=== PATIENT | male | born 1975 | race Caucasian/White ===

== ENCOUNTER 2025-08-20 17:33 | Emergency (ER) | payer BC ==
[~2025-08-20] VITALS: Ht 177.8 cm; Wt 79.0 kg
[2025-08-20 17:42] VITALS: O2SAT 100
[2025-08-20] MEDS: ONDANSETRON HCL 4MG/2ML INJ IV ONE (17:50)
[2025-08-20 17:57] LABS: BASOPHILS % 0.3 % (0.0-2.0); EOSINOPHILS % 0.1 % (0.0-5.0); HEMATOCRIT. 42.3 % (42.0-52.0); HEMOGLOBIN. 14.4 g/dL (14.0-18.0); LYMPHOCYTES % 9.1 % (20.0-50.0); MEAN PLATELET VOLUME 8.4 fl (7.4-10.4); MONOCYTES % 3.9 % (2.0-8.0); NEUTROPHILS % 86.6 % (40.0-76.0); PLATELET 195 x1000/uL (130-400); RED BLOOD CELL COUNT 5.14 mill/uL (4.7-6.1); RED CELL DISTRIBUTION WIDTH 14.9 % (11.6-14.6)
[2025-08-20 18:08] LABS: INR 1.1
[2025-08-20 18:10] LABS: CREATININE 0.8 mg/dL (0.6-1.3); UREA NITROGEN BLOOD 11 mg/dL (9-23)
[2025-08-20 18:11] LABS: TROPONIN I HIGH SENSITIVITY 4 ng/L (3.0-53)
[2025-08-20 18:12] LABS: ASPARTATE AMINOTRANSFERASE 24 IU/L (<34); BILIRUBIN DIRECT 0.3 mg/dL (<=3.0); BILIRUBIN TOTAL 0.8 mg/dL (0.1-1.0); PROTEIN TOTAL 6.7 g/dL (6.0-8.3)
[2025-08-20] MEDS ORDERED: POTASSIUM CHLORIDE 20MEQ/PACKET PO ONE (18:30)
[2025-08-20 19:49] LABS: CLARITY URINE CLEAR (CLEAR); COLOR URINE YELLOW (YELLOW); GLUCOSE URINE NEGATIVE (NEGATIVE); KETONES URINE NEGATIVE (NEGATIVE); LEUKOCYTE ESTERASE URINE NEGATIVE (NEGATIVE); NITRITE URINE NEGATIVE (NEGATIVE); OCCULT BLOOD URINE TRACE (NEGATIVE); PH URINE 7.5 (4.5-8.0); PROTEIN URINE NEGATIVE (NEGATIVE); SPECIFIC GRAVITY URINE 1.022 (1.005-1.030); UROBILINOGEN URINE 0.2 E.U./dL (0.2-1.0)
[2025-08-20 19:57] LABS: *AMPHETAMINES SCREEN URINE NEGATIVE (NEGATIVE); *BARBITURATES SCREEN URINE NEGATIVE (NEGATIVE); *BENZODIAZEPINES SCREEN URINE NEGATIVE (NEGATIVE); *COCAINE SCREEN URINE NEGATIVE (NEGATIVE); CANNABINOID URINE SCREEN NEGATIVE (NEGATIVE); ECSTASY MDMA SCREEN URINE NEGATIVE (NEGATIVE); METHADONE URINE SCREEN NEGATIVE (NEGATIVE); OPIATES URINE SCREEN NEGATIVE (NEGATIVE); PHENCYCLIDINE URINE SCREEN NEGATIVE (NEGATIVE)
[2025-08-20] MEDS: POTASSIUM CHLORIDE 20MEQ/PACKET PO NR (20:18)
[2025-08-20 20:20] LABS: BACTERIA URINE NONE SEEN; SQUAMOUS EPITHELIAL CELL URINE RARE /lpf (RARE/1+); WBC URINE 0-2 /hpf (0-2)
[2025-08-20] MEDS: LABETALOL 5MG/ML 4ML INJ IV ONE (21:06)
[2025-08-20] MEDS ORDERED: IOHEXOL-350 100 ML BOTTLE ONE (21:39)
[2025-08-20 21:44] VITALS: BP 127/62; PULSE 76; RESP 13; TEMP 36.9; O2SAT 100
[2025-08-20 21:47] LABS: TROPONIN I HIGH SENSITIVITY 4 ng/L (3.0-53)
== END 2025-08-20 21:52 | disposition home or self-care (01) ==
LOC: ER 17:33
DX: I11.0 Hypertensive heart disease with heart failure (principal); I10 Essential (primary) hypertension; I49.9 Cardiac arrhythmia, unspecified; I71.02 Dissection of abdominal aorta; Z86.79 Personal history of other diseases of the circulatory system; Z79.899 Other long term (current) drug therapy
CPT/HCPCS: 80076; 80305; 80048; 81003; 80320; 83880; 83690; 83735; 85025; 85610; 85730; 86850; 86900; 86901; 84484; 36415; 74174; 71045; 71275; 93005; 96374; 99285; Q9967; J2405; J3490; G0480